=== PATIENT | female | born 1985 ===

== ENCOUNTER 2018-06-13 16:15 | Emergency (ER) | payer MEDICAID, SELFPAY ==
--- NOTE | 2018-06-13 17:18 | OBHP ---
Datetime: 06/13/2018 17:10 IP Adm Impression: , intrauterine IP Admit Plan: Observation/Evaluation Admit Comment, IP Provider: 33 y/o at 34.5 wks sent from [facility] for NST. Pt has c/o intermittent CTX 1-2 times a day, VB or LOF. On and off pressure but currently no complaints. NST: 140 + accelarations, No decels. BPP was done today but results not available for review. P: F/U with at the clinic on labor precautions given. Pelvic Type - PN: Adequate Extremities - PN: Normal Abdomen - PN: Normal Back - PN: Normal Breast - PN: Normal Lungs - PN: Normal Heart - PN: Normal Thyroid - PN: Normal Neurologic - PN: Normal HEENT - PN: Normal General - PN: Normal FHR - Baseline A Provider: 140 EGA AdmitDate IP: 34.5 Vital Signs Provider: Reviewed IP Chief Complaint: evaluation NICHD Variability Prov Fetus A: Moderate 6-25bpm NICHD Accel Fetus A IP Provider: 15X15 NICHD Decel Fetus A IP Provider: None Genitourinary Exam: Normal DTRs - PN: Normal
[2018-06-13 22:00] VITALS: BP 118/70; PULSE 77; RESP 20; TEMP 98.2; O2SAT 99
== END 2018-06-13 17:59 | disposition home or self-care (01) ==
LOC: C.EROB 16:15
DX: Z36.89 Encounter for other specified antenatal screening (principal)

== ENCOUNTER 2018-06-20 14:32 | Emergency (ER) | payer MEDICAID, SELFPAY ==
[2018-06-20 15:54] LABS: URINE BILIRUBIN NEGATIVE (NEGATIVE); URINE BLOOD NEGATIVE (NEGATIVE); URINE CLARITY Clear (Clear); URINE COLOR Yellow (YELLOW); URINE GLUCOSE (UA) NORMAL (Normal); URINE LEUKOCYTE ESTERASE NEG Leu/uL (Negative); URINE PROTEIN NEGATIVE (NEGATIVE); URINE UROBILINOGEN NORMAL mg/dL (0.2-1.0)
[2018-06-20] MEDS ORDERED: Betamethasone Soluspan 30 mg/5mL Inj Susp IM ONE (17:23)
[2018-06-20] MEDS ORDERED: NIFEdipine 30 mg ER Tab PO SCH (17:30)
--- NOTE | 2018-06-20 22:53 | OBHP ---
Datetime: 06/20/2018 15:30 IP Adm Impression: , intrauterine ; Intact Membranes IP Admit Plan: Observation/Evaluation Admit Comment, IP Provider: 33 yo female G1 with an IUP at 35 4/7 weeks and here for Weekly NST's se condary to GDM o Glyburide. States that her BS's are under control. Admits to adequate FM and deies LOF or Vaginal bleeding NST was reactive Pt progressed to UC's Q 3-4 minutes and a repeated pelvic exam was cx closed, 30% and -3 IV hydration was started Continue monitoring Pelvic Type - PN: Adequate Extremities - PN: Normal Abdomen - PN: Normal Back - PN: Normal Breast - PN: Not Done Lungs - PN: Normal Heart - PN: Normal Thyroid - PN: Normal Neurologic - PN: Normal HEENT - PN: Normal General - PN: Normal Presentation-Admit: Vertex FHR - Baseline A Provider: 150-160 Membranes, Provider: Intact Contraction Comments Provider: Irregular Gestation - Est Wks by US: 35 4/7 weeks Pool Provider: Negative Nitrazine Provider: Negative IP Hx Assessment: Record EGA AdmitDate IP: 35.5 Vital Signs Provider: Reviewed IP Chief Complaint: evaluation NICHD Variability Prov Fetus A: Moderate 6-25bpm NICHD Accel Fetus A IP Provider: 10X10 FHR Category Provider Fetus A: Category I NICHD Decel Fetus A IP Provider: None Dilatation, Provider: 0 Effacement, Provider: 0 Station, Provider: high Genitourinary Exam: Normal DTRs - PN: Normal Datetime: 06/13/2018 17:10 Comments, ACOG Physical Exam:
--- NOTE | 2018-06-20 23:11 | OBDCSUM ---
Datetime: 06/20/2018 22:58 Discharged to, Provider: Home Follow up at, Provider: CLINIC Disch Instr Activity: Bedrest Disch Instr Diet: Restricted, specify Discharge Diet restrict Prov: diabetic diet Discharge Instructions, Provider: Routine instructions given Discharge Diagnosis, Provider: Labor Discharge Time: 06/20/2018 23:00 Follow up in weeks, Provider: Keep appt on 06/22/18 Follow up in weeks, Provider: Tuesday06/22/18 Disch Referrals: None Contraception discussed, Prov: Yes Disch Activity Restrictions: No exercising; No lifting; Minimize walking; Minimize stair-climbing; N o sexual activity; Nothing in vagina - [place], tampons, douche Discharge Comment, Provider: UC's persisted and became more frequent with minimal pelvic exam change d despite po hydration and then IV Hydration. A rescue Celestone dose given Cx's persisted despite a dose pf Procardia and after a couple of hours she was given Terbutaline S C x 3 doses and her contractions finnally ressolved/ BS's were 89 initially and then 85 2 hours after a meal. D/c'ed home with instructions and in Stable and Satisfactory condition. Advise to increase po water intake and to continue PNV daily Also counseled to pelvic rest Contraception after Delivery: Undecided
[2018-06-21 03:44] VITALS: BP 101/37; PULSE 125; RESP 20; TEMP 99; O2SAT 98
== END 2018-06-20 23:20 | disposition home or self-care (01) ==
LOC: C.EROB 14:32
DX: O60.03 Preterm labor without delivery, third trimester (principal); Z3A.35 35 weeks gestation of pregnancy
CPT/HCPCS: 81001; 82948; 87101; 96372; 99283; J0702